=== PATIENT | male | born 1940 | race Caucasian/White ===

== ENCOUNTER 2021-09-18 12:22 | Emergency (ER) | payer MEDICARE ==
[2021-09-18] MEDS ORDERED: Sodium Chloride 0.9% 10 ML Syringe FLUSH PRN (12:42)
[2021-09-18 13:04] LABS: ANION GAP 15.3 mmol/L (5-15)
[2021-09-18] MEDS ORDERED: Sodium Polystyrene Sulfonate 15 GM/60 ML Susp 60 ML Bot PO ONE (13:08)
[2021-09-18 15:56] VITALS: BP 166/84; PULSE 35
== END 2021-09-18 16:05 ==
LOC: KA.ED 12:22
DX: J43.9 Emphysema, unspecified (principal); N17.9 Acute kidney failure, unspecified; R42 Dizziness and giddiness; R00.1 Bradycardia, unspecified; R06.02 Shortness of breath; R91.1 Solitary pulmonary nodule; E87.5 Hyperkalemia; E83.41 Hypermagnesemia; E78.00 Pure hypercholesterolemia, unspecified; I10 Essential (primary) hypertension; F17.210 Nicotine dependence, cigarettes, uncomplicated; Z88.8 Allergy status to other drugs, medicaments and biological substances; Z79.899 Other long term (current) drug therapy
CPT/HCPCS: 36415; 71045; 80053; 83735; 83880; 84484; 85025; 93010; 99285; A9270-GY

== ENCOUNTER 2021-11-28 11:49 | Emergency (ER) | payer MEDICARE ==
[2021-11-28] MEDS ORDERED: Sodium Chloride 0.9% 1,000 ML IV ONE (12:45)
[2021-11-28] MEDS ORDERED: Sodium Chloride 0.9% 10 ML Syringe IV PRN (13:00)
[2021-12-15 09:46] LABS: ANION GAP 11.9 mmol/L (5-15); CHLORIDE,CL 98 mmol/L (98-115); ESTIMATED GFR 70 mL/min (>=60); SODIUM,NA 133 mmol/L (136-145)
== END 2021-11-28 14:20 ==
LOC: KA.ED 11:49
DX: E86.0 Dehydration (principal); R19.7 Diarrhea, unspecified; J44.9 Chronic obstructive pulmonary disease, unspecified; F17.210 Nicotine dependence, cigarettes, uncomplicated
CPT/HCPCS: 36415; 80053; 83690; 85025; 87324; 87449; 96360; 99284; 99284-25; J7030

== ENCOUNTER 2022-06-13 20:28 | Emergency (ER) | payer MEDICARE ==
[2022-06-13 22:17] LABS: ANION GAP 11.7 mmol/L (5-15)
[2022-06-13] MEDS: Iopamidol 755 Mg/ML 100 ML Bottle IV ONE (23:01)
[2022-06-13] MEDS: Sodium Chloride 0.9% 50 ML IV SCH (23:02)
[2022-06-14] MEDS: Sodium Chloride 0.9% 1,000 ML IV ONE (00:45)
[2022-06-14] MEDS: Sodium Chloride 0.9% 1,000 ML ONE (01:19)
== END 2022-06-14 01:18 ==
LOC: KA.ED 20:28
DX: K59.00 Constipation, unspecified (principal); K56.609 Unspecified intestinal obstruction, unspecified as to partial versus complete obstruction; E87.1 Hypo-osmolality and hyponatremia; E78.00 Pure hypercholesterolemia, unspecified; I10 Essential (primary) hypertension; J44.9 Chronic obstructive pulmonary disease, unspecified; K21.9 Gastro-esophageal reflux disease without esophagitis; N40.0 Benign prostatic hyperplasia without lower urinary tract symptoms; Z88.8 Allergy status to other drugs, medicaments and biological substances; Z79.899 Other long term (current) drug therapy; Z72.0 Tobacco use
CPT/HCPCS: 36415; 74021; 74177; 80048; 83605; 85025; 96360; 99284; 99285-25; J3490; J7030; Q9967

== ENCOUNTER 2022-06-20 08:45 | Emergency (ER) | payer MEDICARE ==
[2022-06-20 10:09] LABS: BASOPHILS ABSOLUTE AUTO 0.02 10^3/uL (0.00-0.10); BASOPHILS PERCENT AUTO 0.3 % (0.0-1.0); EOSINOPHILS ABSOLUTE AUTO 0.04 10^3/uL (0.10-0.30); EOSINOPHILS PERCENT AUTO 0.6 % (1.0-3.0); HEMATOCRIT 40.2 % (40.0-52.0); HEMOGLOBIN 13.2 g/dL (13.0-17.0); IMMATURE GRAN ABSOLUTE AUTO 0.01 10^3/uL (0.00-0.50); IMMATURE GRAN PERCENT AUTO 0.1 % (0.0-5.0); LYMPHOCYTES ABSOLUTE AUTO 0.89 10^3/uL (1.00-4.00); MEAN CORPUSCULAR HEMOGLOBIN 32.2 pg (27.0-31.0); MEAN CORPUSCULAR HGB CONC 32.8 g/dL (32.0-36.0); MEAN PLATELET VOLUME 11.9 fL (7.4-10.4); MONOCYTES ABSOLUTE AUTO 0.51 10^3/uL (0.10-0.80); MONOCYTES PERCENT AUTO 7.4 % (2.0-8.0); NEUTROPHILS ABSOLUTE AUTO 5.39 10^3/uL (2.50-7.00); NEUTROPHILS PERCENT AUTO 78.6 % (50.0-70.0); PLATELET COUNT,PLT 147 10^3/uL (150-400); WHITE BLOOD CELL COUNT,WBC 6.86 10^3/uL (5.00-10.00)
[2022-06-20 10:25] LABS: ALBUMIN 3.86 g/dL (3.40-5.00); ANION GAP 11.9 mmol/L (5-15); BILIRUBIN TOTAL 0.6 mg/dL (0.2-1.0); CALCIUM 8.9 mg/dL (8.7-10.3); CARBON DIOXIDE,CO2 28.3 mmol/L (21.0-32.0); CREATININE 0.97 mg/dL (0.51-1.17); EST CRCL DRUG DOSING (CG) 45.98 mL/min; POTASSIUM,K 4.2 mmol/L (3.5-5.1); PROTEIN TOTAL,TP 7.7 g/dL (6.4-8.2)
[2022-06-20] MEDS ORDERED: Sodium Chloride 0.9% 1,000 ML IV ONE (10:36)
[2022-06-20] MEDS ORDERED: Magnesium Citrate Solution 296 ML Bottle PO ONE (11:13)
[2022-06-20] MEDS ORDERED: Magnesium Hydroxide 400 MG/5 ML Susp 30 ML Cup PO ONE (12:50)
== END 2022-06-20 13:40 | disposition home or self-care (01) ==
LOC: KA.ED 08:45
DX: K59.00 Constipation, unspecified (principal); E78.00 Pure hypercholesterolemia, unspecified; I10 Essential (primary) hypertension; J44.9 Chronic obstructive pulmonary disease, unspecified; K21.9 Gastro-esophageal reflux disease without esophagitis; Z88.8 Allergy status to other drugs, medicaments and biological substances; Z79.899 Other long term (current) drug therapy; Z72.0 Tobacco use
CPT/HCPCS: 36415; 74021; 80053; 83605; 85025; 96360; 99284; 99284-25; A9270-GY; J7030

== ENCOUNTER 2023-09-03 15:50 | Inpatient (IN) | payer MEDICARE ==
[2023-09-03] MEDS ORDERED: Sodium Chloride 0.9% 10 ML Syringe FLUSH PRN (16:32)
[2023-09-03] MEDS ORDERED: Sodium Chloride 0.9% 500 ML ONE (16:41)
[2023-09-03 16:42] LABS: BASOPHILS ABSOLUTE AUTO 0.02 10^3/uL (0.00-0.10); BASOPHILS PERCENT AUTO 0.2 % (0.0-1.0); EOSINOPHILS ABSOLUTE AUTO 0.01 10^3/uL (0.10-0.30); EOSINOPHILS PERCENT AUTO 0.1 % (1.0-3.0); HEMATOCRIT 38.9 % (40.0-52.0); HEMOGLOBIN 13.4 g/dL (13.0-17.0); IMMATURE GRAN ABSOLUTE AUTO 0.01 10^3/uL (0.00-0.50); IMMATURE GRAN PERCENT AUTO 0.1 % (0.0-5.0); LYMPHOCYTES ABSOLUTE AUTO 0.82 10^3/uL (1.00-4.00); MEAN CORPUSCULAR HEMOGLOBIN 32.6 pg (27.0-31.0); MEAN CORPUSCULAR HGB CONC 34.4 g/dL (32.0-36.0); MEAN CORPUSCULAR VOLUME 94.6 fL (82.0-92.0); MEAN PLATELET VOLUME 11.8 fL (7.4-10.4); MONOCYTES ABSOLUTE AUTO 0.81 10^3/uL (0.10-0.80); MONOCYTES PERCENT AUTO 8.9 % (2.0-8.0); NEUTROPHILS ABSOLUTE AUTO 7.45 10^3/uL (2.50-7.00); NEUTROPHILS PERCENT AUTO 81.7 % (50.0-70.0); PLATELET COUNT,PLT 163 10^3/uL (150-400); RED BLOOD CELL COUNT 4.11 10^6/uL (4.50-6.00); RED CELL DISTRIBUTION WIDTH 13.6 % (11.5-14.5); WHITE BLOOD CELL COUNT,WBC 9.12 10^3/uL (5.00-10.00)
[2023-09-03] MEDS: Sodium Chloride 0.9% 500 ML IV SCH (16:43)
[2023-09-03 16:57] LABS: ALANINE AMINOTRANSFERASE,ALT 25 U/L (14-63); ALBUMIN 3.68 g/dL (3.40-5.00); ALKALINE PHOSPHATASE 83 U/L (46-116); ANION GAP 17.1 mmol/L (5-15); ASPARTATE AMNIOTRANSFERASE,AST 26 U/L (15-37); BILIRUBIN TOTAL 0.9 mg/dL (0.2-1.0); BLOOD UREA NITROGEN,BUN 21 mg/dL (7-18); CALCIUM 9.6 mg/dL (8.7-10.3); CARBON DIOXIDE,CO2 25.4 mmol/L (21.0-32.0); CHLORIDE,CL 90 mmol/L (98-107); CREATININE 1.47 mg/dL (0.51-1.17); ESTIMATED GFR 47 mL/min (>=60); GLUCOSE RANDOM 112 mg/dL (70-140); LIPASE 28 U/L (16-77); POTASSIUM,K 4.5 mmol/L (3.5-5.1); PROTEIN TOTAL,TP 7.4 g/dL (6.4-8.2); SODIUM,NA 128 mmol/L (136-145)
[2023-09-03] MEDS ORDERED: Ondansetron 4 MG/2 ML SDV ONE (17:05)
[2023-09-03] MEDS: Ondansetron 4 MG/2 ML SDV IVPUSH ONE (17:10)
[2023-09-03] MEDS: Iopamidol 755 Mg/ML 100 ML Bottle IV ONE (17:24)
[2023-09-03] MEDS: Sodium Chloride 0.9% 50 ML IV SCH (17:25)
[2023-09-03] MEDS ORDERED: Benzocaine 20% Topical Spray UD ONE (18:35)
[2023-09-03] MEDS ORDERED: Lactated Ringers 1,000 ML ONE (18:36)
[2023-09-03] MEDS: Lactated Ringers 1,000 ML IV SCH (18:41)
[2023-09-03] MEDS: Benzocaine 20% Topical Spray UD MUCMEM ONE (18:44)
[2023-09-04] MEDS: Nicotine 14 MG/24 Hr Patch TRDERM ONE (00:03)
[2023-09-04] MEDS: Albuterol/Ipratropium 3.0-0.5 MG/3 ML Neb Soln NEB ONE (00:03)
[2023-09-04] MEDS: Sodium Chloride 0.9% 1,000 ML IV SCH (01:27)
[2023-09-04 06:46] LABS: BILIRUBIN,URINE NEGATIVE (NEGATIVE); COLOR,URINE DARK YELLOW (YELLOW); GLUCOSE,URINE NEGATIVE (NEGATIVE); KETONES,URINE 15 mg/dL (NEGATIVE); LEUKOCYTE ESTERASE,URINE NEGATIVE (NEGATIVE); NITRITE,URINE NEGATIVE (NEGATIVE); OCCULT BLOOD,URINE NEGATIVE (NEGATIVE); PH,URINE 5.5 (5.0-9.0); PROTEIN,URINE 30 mg/dL (NEGATIVE); UROBILINOGEN,URINE 0.2 E.U./dL (0.2-1.0)
[2023-09-04 06:57] LABS: APPEARANCE,URINE SLIGHTLY CLOUDY (CLEAR)
[2023-09-04 06:58] LABS: BACTERIA,URINE OCCASIONAL /HPF (NONE TO FEW); EPITHELIAL CELLS,URINE RARE /LPF; HYALINE CASTS,URINE OCCASIONAL; MUCUS,URINE RARE /LPF (NEGATIVE); RBC,URINE 0-5 /HPF (0-5); WBC,URINE 0-5 /HPF (0-5)
[2023-09-04 07:15] LABS: BASOPHILS ABSOLUTE AUTO 0.05 10^3/uL (0.00-0.10); BASOPHILS PERCENT AUTO 0.7 % (0.0-1.0); EOSINOPHILS PERCENT AUTO 1.5 % (1.0-3.0); HEMOGLOBIN 12.2 g/dL (13.0-17.0); IMMATURE GRAN ABSOLUTE AUTO 0.01 10^3/uL (0.00-0.50); IMMATURE GRAN PERCENT AUTO 0.1 % (0.0-5.0); LYMPHOCYTES ABSOLUTE AUTO 0.95 10^3/uL (1.00-4.00); LYMPHOCYTES PERCENT AUTO 13.8 % (20.0-40.0); MEAN CORPUSCULAR HEMOGLOBIN 32.3 pg (27.0-31.0); MEAN CORPUSCULAR HGB CONC 33.9 g/dL (32.0-36.0); MEAN CORPUSCULAR VOLUME 95.2 fL (82.0-92.0); MEAN PLATELET VOLUME 11.3 fL (7.4-10.4); MONOCYTES ABSOLUTE AUTO 0.78 10^3/uL (0.10-0.80); MONOCYTES PERCENT AUTO 11.3 % (2.0-8.0); NEUTROPHILS ABSOLUTE AUTO 4.99 10^3/uL (2.50-7.00); NEUTROPHILS PERCENT AUTO 72.6 % (50.0-70.0); PLATELET COUNT,PLT 133 10^3/uL (150-400); RED BLOOD CELL COUNT 3.78 10^6/uL (4.50-6.00); RED CELL DISTRIBUTION WIDTH 13.7 % (11.5-14.5); WHITE BLOOD CELL COUNT,WBC 6.88 10^3/uL (5.00-10.00)
[2023-09-04 07:32] LABS: ANION GAP 10.7 mmol/L (5-15); CALCIUM 8.6 mg/dL (8.7-10.3); CARBON DIOXIDE,CO2 29.1 mmol/L (21.0-32.0); CREATININE 1.2 mg/dL (0.51-1.17); EST CRCL DRUG DOSING (CG) 35.63 mL/min; POTASSIUM,K 4.8 mmol/L (3.5-5.1)
[2023-09-04] MEDS: Formoterol/Mometasone 200-5 MCG 8.8 GM Inhaler INH SCH (07:40)
[2023-09-04] MEDS: Albuterol/Ipratropium 3.0-0.5 MG/3 ML Neb Soln INH PRN (07:51)
[2023-09-04] MEDS: Nicotine 14 MG/24 Hr Patch TRDERM SCH (08:35)
[2023-09-04] MEDS ORDERED: Non-Formulary Medication 1 Each (Budesonide/Formoterol [Symbicort 160-4.5 Mcg Inhaler (6 G INH SCH (09:00)
[2023-09-04] MEDS: NS + KCl 20mEq/L 1,000 ML IV SCH (12:38)
[2023-09-04] MEDS: Diatrizoate Meglumine/Diatrizoate Sodium 37% 120 ML Bottle NGTUBE ONE (17:49)
[2023-09-04] MEDS: Albuterol 8 GM Inhaler INH PRN (21:04)
[2023-09-04] MEDS: Albuterol/Ipratropium 3.0-0.5 MG/3 ML Neb Soln NEB PRN (22:09)
[2023-09-04] MEDS: Loperamide 2 MG Cap PO ONE (23:39)
[2023-09-05 07:36] LABS: BASOPHILS ABSOLUTE AUTO 0.03 10^3/uL (0.00-0.10); BASOPHILS PERCENT AUTO 0.3 % (0.0-1.0); EOSINOPHILS ABSOLUTE AUTO 0.01 10^3/uL (0.10-0.30); EOSINOPHILS PERCENT AUTO 0.1 % (1.0-3.0); HEMOGLOBIN 13.4 g/dL (13.0-17.0); IMMATURE GRAN ABSOLUTE AUTO 0.02 10^3/uL (0.00-0.50); IMMATURE GRAN PERCENT AUTO 0.2 % (0.0-5.0); LYMPHOCYTES ABSOLUTE AUTO 0.89 10^3/uL (1.00-4.00); LYMPHOCYTES PERCENT AUTO 9.6 % (20.0-40.0); MEAN CORPUSCULAR HEMOGLOBIN 32.7 pg (27.0-31.0); MEAN CORPUSCULAR HGB CONC 33.5 g/dL (32.0-36.0); MEAN CORPUSCULAR VOLUME 97.6 fL (82.0-92.0); MEAN PLATELET VOLUME 11.9 fL (7.4-10.4); MONOCYTES PERCENT AUTO 9.8 % (2.0-8.0); NEUTROPHILS ABSOLUTE AUTO 7.38 10^3/uL (2.50-7.00); PLATELET COUNT,PLT 149 10^3/uL (150-400); RED CELL DISTRIBUTION WIDTH 14.1 % (11.5-14.5); WHITE BLOOD CELL COUNT,WBC 9.23 10^3/uL (5.00-10.00)
[2023-09-05 08:07] LABS: ALBUMIN 3.15 g/dL (3.40-5.00); ANION GAP 12.3 mmol/L (5-15); BILIRUBIN TOTAL 0.8 mg/dL (0.2-1.0); CALCIUM 8.5 mg/dL (8.7-10.3); CREATININE 0.98 mg/dL (0.51-1.17); EST CRCL DRUG DOSING (CG) 43.62 mL/min; POTASSIUM,K 4.3 mmol/L (3.5-5.1); PROTEIN TOTAL,TP 6.8 g/dL (6.4-8.2)
[2023-09-05] MEDS: Loperamide 2 MG Cap PO ONE (19:46)
[2023-09-06] MEDS: hydrOXYzine HCl 25 MG Tab PO ONE (00:22)
[2023-09-06 07:13] LABS: BASOPHILS ABSOLUTE AUTO 0.05 10^3/uL (0.00-0.10); BASOPHILS PERCENT AUTO 0.6 % (0.0-1.0); EOSINOPHILS ABSOLUTE AUTO 0.14 10^3/uL (0.10-0.30); EOSINOPHILS PERCENT AUTO 1.8 % (1.0-3.0); HEMATOCRIT 40.5 % (40.0-52.0); HEMOGLOBIN 13.7 g/dL (13.0-17.0); IMMATURE GRAN ABSOLUTE AUTO 0.01 10^3/uL (0.00-0.50); IMMATURE GRAN PERCENT AUTO 0.1 % (0.0-5.0); LYMPHOCYTES ABSOLUTE AUTO 1.21 10^3/uL (1.00-4.00); LYMPHOCYTES PERCENT AUTO 15.7 % (20.0-40.0); MEAN CORPUSCULAR HEMOGLOBIN 32.6 pg (27.0-31.0); MEAN CORPUSCULAR HGB CONC 33.8 g/dL (32.0-36.0); MEAN CORPUSCULAR VOLUME 96.4 fL (82.0-92.0); MEAN PLATELET VOLUME 11.2 fL (7.4-10.4); MONOCYTES ABSOLUTE AUTO 0.91 10^3/uL (0.10-0.80); MONOCYTES PERCENT AUTO 11.8 % (2.0-8.0); NEUTROPHILS ABSOLUTE AUTO 5.41 10^3/uL (2.50-7.00); PLATELET COUNT,PLT 132 10^3/uL (150-400); RED CELL DISTRIBUTION WIDTH 14.1 % (11.5-14.5); WHITE BLOOD CELL COUNT,WBC 7.73 10^3/uL (5.00-10.00)
[2023-09-06 07:27] LABS: ALBUMIN 3.14 g/dL (3.40-5.00); ANION GAP 13.5 mmol/L (5-15); BILIRUBIN TOTAL 0.9 mg/dL (0.2-1.0); CALCIUM 8.1 mg/dL (8.7-10.3); CARBON DIOXIDE,CO2 24.8 mmol/L (21.0-32.0); CREATININE 0.76 mg/dL (0.51-1.17); EST CRCL DRUG DOSING (CG) 56.25 mL/min; POTASSIUM,K 4.3 mmol/L (3.5-5.1); PROTEIN TOTAL,TP 6.8 g/dL (6.4-8.2)
[2023-09-06] MEDS ORDERED: traMADol 50 MG Tab PO PRN (10:04)
[2023-09-06] MEDS: amLODIPine 5 MG Tab PO SCH (20:19)
[2023-09-06] MEDS: Docusate Sodium 100 MG Cap PO SCH (20:19)
[2023-09-06] MEDS: Lutein/Minerals/Vitamins A, C & E Tab PO SCH (20:19)
[2023-09-06] MEDS: rOPINIRole 0.25 MG Tab PO SCH (20:19)
[2023-09-06] MEDS: Simvastatin 20 MG Tab PO SCH (20:19)
[2023-09-06] MEDS ORDERED: Non-Formulary Medication 1 Each (Vit C/E/Zn/Coppr/Lutein/Zeaxan [Preservision Areds 2 Soft PO SCH (21:00)
[2023-09-06] MEDS: ALPRAZolam 0.25 MG Tab PO PRN (23:02)
[2023-09-07] MEDS: Omeprazole 20 MG Cap.CR PO SCH (06:16)
[2023-09-07] MEDS: Polyethylene Glycol 3350 Powder 17 GM Packet PO SCH (08:05)
[2023-09-07] MEDS: Finasteride 5 MG Tab PO SCH (08:06)
[2023-09-07] MEDS: Docusate Sodium 100 MG Cap PO SCH (08:06)
[2023-09-07 08:24] LABS: BASOPHILS ABSOLUTE AUTO 0.04 10^3/uL (0.00-0.10); BASOPHILS PERCENT AUTO 0.6 % (0.0-1.0); EOSINOPHILS ABSOLUTE AUTO 0.17 10^3/uL (0.10-0.30); EOSINOPHILS PERCENT AUTO 2.6 % (1.0-3.0); HEMATOCRIT 39.8 % (40.0-52.0); HEMOGLOBIN 13.4 g/dL (13.0-17.0); IMMATURE GRAN ABSOLUTE AUTO 0.01 10^3/uL (0.00-0.50); IMMATURE GRAN PERCENT AUTO 0.2 % (0.0-5.0); LYMPHOCYTES ABSOLUTE AUTO 1.13 10^3/uL (1.00-4.00); MEAN CORPUSCULAR HEMOGLOBIN 32.4 pg (27.0-31.0); MEAN CORPUSCULAR HGB CONC 33.7 g/dL (32.0-36.0); MEAN CORPUSCULAR VOLUME 96.1 fL (82.0-92.0); MEAN PLATELET VOLUME 12.1 fL (7.4-10.4); MONOCYTES ABSOLUTE AUTO 0.81 10^3/uL (0.10-0.80); MONOCYTES PERCENT AUTO 12.2 % (2.0-8.0); NEUTROPHILS ABSOLUTE AUTO 4.47 10^3/uL (2.50-7.00); NEUTROPHILS PERCENT AUTO 67.4 % (50.0-70.0); PLATELET COUNT,PLT 139 10^3/uL (150-400); RED BLOOD CELL COUNT 4.14 10^6/uL (4.50-6.00); RED CELL DISTRIBUTION WIDTH 13.7 % (11.5-14.5); WHITE BLOOD CELL COUNT,WBC 6.63 10^3/uL (5.00-10.00)
[2023-09-07 08:52] LABS: ALBUMIN 3.12 g/dL (3.40-5.00); BILIRUBIN TOTAL 0.9 mg/dL (0.2-1.0); CALCIUM 8.6 mg/dL (8.7-10.3); CARBON DIOXIDE,CO2 26.6 mmol/L (21.0-32.0); CREATININE 0.81 mg/dL (0.51-1.17); EST CRCL DRUG DOSING (CG) 52.78 mL/min; PROTEIN TOTAL,TP 6.7 g/dL (6.4-8.2)
[2023-09-07 09:03] LABS: ANION GAP 11.6 mmol/L (5-15); POTASSIUM,K 4.2 mmol/L (3.5-5.1)
[2023-09-07] MEDS: Psyllium Husk Powder Sugar Free 5.85 GM Packet PO SCH (14:16)
[2023-09-07] MEDS ORDERED: Polyethylene Glycol 3350 Powder 17 GM Packet PO SCH (21:00)
== END 2023-09-07 15:30 | disposition home or self-care (01) | DRG 389 ==
LOC: KA.ED 15:50 → KA.MS 20:19 → UNDOADMIN 20:35 → UNDODISIN 09-07 15:30
PROVIDERS: ADMIT Physician Assistant Medical; ATTEND Family Medicine
PROC: 0D9670Z Drainage of Stomach with Drainage Device, Via Natural or Artificial Opening (ICD-10-PCS; principal; 2023-09-03)
DX: K56.609 Unspecified intestinal obstruction, unspecified as to partial versus complete obstruction (principal); E87.1 Hypo-osmolality and hyponatremia; N17.9 Acute kidney failure, unspecified; H54.7 Unspecified visual loss; E78.00 Pure hypercholesterolemia, unspecified; I10 Essential (primary) hypertension; J44.9 Chronic obstructive pulmonary disease, unspecified; K21.9 Gastro-esophageal reflux disease without esophagitis; G62.9 Polyneuropathy, unspecified; M54.9 Dorsalgia, unspecified; G89.29 Other chronic pain; K59.09 Other constipation; N40.0 Benign prostatic hyperplasia without lower urinary tract symptoms; F17.210 Nicotine dependence, cigarettes, uncomplicated; Z88.8 Allergy status to other drugs, medicaments and biological substances; Z98.890 Other specified postprocedural states; Z79.899 Other long term (current) drug therapy; Z79.51 Long term (current) use of inhaled steroids; Z86.010 Personal history of colon polyps
CPT/HCPCS: 36415; 43752; 71045; 74018; 74176; 74177; 80048; 80053; 81001; 83690; 85025; 96361; 96374; 99223-GT; 99232-GT; 99233-GT; 99239-GT; 99284; 99285-25; A9270-GY; J2405; J3480; J3490; J7030; J7040; J7120; J7620-GY; Q3014; Q9963; Q9967